=== PATIENT | female | born 1995 | race Two or more races ===

== ENCOUNTER 2020-08-05 11:16 | Emergency (ER) | payer OTHER ==
[2020-08-05 11:23] VITALS: BP 121/79; PULSE 100; TEMP 97.5; BMI 45.1
--- NOTE | 2020-08-05 13:16 | PDOC ---
History of Present Illness - General Chief Complaint: Injury Stated Complaint: LT. LEG LAC. Time Seen by Provider: 08/05/20 11:30 History Source: Patient Exam Limitations: No Limitations - History of Present Illness Initial Comments: 08/05/20 13:07 Patient is a 24-year-old female with no past medical history here with complaints of laceration to the left leg. States she was passing a glass minutes caused this laceration. Tetanus is up-to-date. PMD: Dr. Ashvin Hamilton PMHX: as above PSOCHX: occ etoh ALL: NKDA Review of Systems: GENERAL/CONSTITUTIONAL: No fever or chills. No weakness. No weight change. HEAD, EYES, EARS, NOSE AND THROAT: No change in vision. No ear pain or discharge. No sore throat. MUSCULOSKELETAL: No joint or muscle swelling or pain. No neck or back pain. SKIN AND BREASTS: No rash or easy bruising. NEUROLOGIC: No headache, vertigo, loss of consciousness, or loss of sensation. PSYCHIATRIC: No depression (+) anxiety. ENDOCRINE: No increased thirst. No abnormal weight change. HEMATOLOGIC/LYMPHATIC: No anemia, easy bleeding, or history of blood clots. ALLERGIC/IMMUNOLOGIC: No hives or skin allergy. No latex allergy. GENERAL: [The patient is awake, alert, and fully oriented, in no acute distress.] HEAD: [Normal with no signs of trauma.] LUNGS: [Breath sounds equal, clear to auscultation bilaterally. No wheezes, and no crackles.] HEART: [Regular rate and rhythm, normal S1 and S2 without murmur, rub.] ABDOMEN: [Soft, nontender, normoactive bowel sounds. No guarding, no rebound. No masses.] EXTREMITIES: [Normal range of motion, no edema. No clubbing or cyanosis. No cords, erythema, or tenderness.] NEUROLOGICAL: [Cranial nerves II through XII grossly intact. Normal speech, normal gait.] PSYCH: [Normal mood, normal affect, (+) anxiety.] SKIN: 3 cm laceration to the lateral lower extremity, warm, Dry, normal turgor, no rashes or lesions noted.] Past History - Medical History Allergies/Adverse Reactions: Allergies Allergy/AdvReac Type Severity Reaction Status Date / Time kiwi Allergy Verified 08/05/20 11:23 COPD: No - Reproductive History Is Patient Now?: No - Psycho-Social/Smoking History Smoking History: Never smoked - Substance Abuse Hx (Audit-C & DAST Scrn) How often the patient has a drink containing alcohol: 2-4 times / month Score: In Men: 4 or > Positive; In Women: 3 or > Positive: 2 Screen Result (Pos requires Nsg. Audit-10AR): Negative *Physical Exam - Vital Signs Last Vital Signs Temp Pulse Resp BP Pulse Ox 97.5 F L 100 H 18 121/79 98 08/05/20 11:20 08/05/20 11:20 08/05/20 11:20 08/05/20 11:20 08/05/20 11:20 Medical Decision Making - Medical Decision Making 08/05/20 13:07 Patient is a 24-year-old female with no past medical history here with complaints of laceration to the left leg. States she was passing a glass minutes caused this laceration. Tetanus is up-to-date. Laceration for suturing I discussed the physical exam findings, ancillary test results and final d iagnoses with the patient. I answered all of the patient's questions. The patient was satisfied with the care received and felt comfortable with the discharge plan and treatment plan. The Patient agrees to follow up with the primary care physician within 24-72 hours. Discharge - Discharge Information Problems reviewed: Yes Clinical Impression/Diagnosis: Laceration of leg Condition: Stable Disposition: HOME - Follow up/Referral Referrals: Ramses Hamilton MD [Primary Care Provider] - - Patient Discharge Instructions Patient Printed Discharge Instructions: DI for Laceration Repair Additional Instructions: Your Discharge Instructions: You must call primary care physician within 24 hours to arrange follow-up. Return to the Emergency Department with any new, persistent or worsening symptoms, for fever, chills, SOB, dizziness or any other concerning changes that may occur. Keep your wound clean and dry. If there are any concerns for infection with pain, redness, discharge from the wound, you must return to the emergency room immediately. - Post Discharge Activity
== END 2020-08-05 13:22 | disposition home or self-care (01) ==
LOC: JERFT 11:16
DX: S81.812A Laceration without foreign body, left lower leg, initial encounter (principal)
CPT/HCPCS: 99282-25

== ENCOUNTER 2022-12-15 17:12 | Emergency (ER) | payer OTHER ==
[2022-12-15 17:26] VITALS: BP 145/99; PULSE 83; RESP 20; TEMP 97.9; BMI 40.3
[2022-12-15] MEDS ORDERED: FAMOTIDINE 20 MG/50 ML IVPB 20 MG/50 ML MG IVPB ONE ×2 (18:17→18:50)
[2022-12-15] MEDS ORDERED: SUCRALFATE 1 GM TABLET (FP) PO ONE (18:30)
[2022-12-15] MEDS ORDERED: SUCRALFATE 1 GM TABLET (FP) ONE (18:56)
[2022-12-15] MEDS ORDERED: DICYCLOMINE HCL 10 MG CAPSULE PO ONE (19:48)
[2022-12-15] MEDS ORDERED: LIDOCAINE VISCOUS 2% ORAL/TOP 15 ML UNIT-DOSE CUP MM ONE (19:48)
[2022-12-15] MEDS ORDERED: MAG HYDROX/AL HYDROX/SIMETH 30 ML UNIT-DOSE CUP PO ONE (19:49)
[2022-12-15 19:57] LABS: BASO % 0.7 % (0-2.0); EOS % 0.7 % (0-4.5); HEMATOCRIT 37.8 % (32.4-45.2); HEMOGLOBIN 11.9 GM/dL (10.7-15.3); LYMPH % 32.5 % (8-40); MCH 25.7 pg (25.7-33.7); MCHC 31.6 g/dl (32.0-36.0); MEAN CELL VOLUME 81.2 fl (80-96); MEAN PLT VOLUME 8.9 fl (7.5-11.1); MONO % 9.6 % (3.8-10.2); NEUT % 56.5 % (42.8-82.8); PLATELET COUNT 260 10^3/uL (134-434); RBC 4.65 M/mm3 (3.60-5.2); RDW 15.9 % (11.6-15.6)
[2022-12-15] MEDS ORDERED: MAG HYDROX/AL HYDROX/SIMETH 30 ML UNIT-DOSE CUP ONE (19:58)
[2022-12-15] MEDS ORDERED: LIDOCAINE VISCOUS 2% ORAL/TOP 15 ML UNIT-DOSE CUP ONE (20:03)
[2022-12-15] MEDS ORDERED: DICYCLOMINE HCL 10 MG CAPSULE ONE (20:03)
[2022-12-15 20:13] LABS: CALCIUM 8.7 mg/dL (8.5-10.1)
[2022-12-15 20:14] LABS: ALBUMIN 3.6 g/dl (3.4-5.0); BLOOD UREA NITROGEN 10.1 mg/dL (7-18)
[2022-12-15 20:17] LABS: CREATININE 0.7 mg/dL (0.55-1.3)
[2022-12-15 20:18] LABS: BILIRUBIN,TOTAL 0.3 mg/dL (0.2-1)
[2022-12-15 20:19] LABS: TOT PROT 7.2 g/dl (6.4-8.2)
[2022-12-15 20:38] LABS: EPI CELLS 12 /uL (0-25.1); HYALINE CASTS 0 /uL (0-3.1); URINE APPEARANCE CLOUDY; URINE BACTERIA 57 /uL (0-1359); URINE BILIRUBIN NEGATIVE (NEGATIVE); URINE COLOR YELLOW; URINE GLUCOSE (UA) NEGATIVE (NEGATIVE); URINE KETONE NEGATIVE (NEGATIVE); URINE LEUK ESTERASE NEGATIVE (NEGATIVE); URINE NITRITE NEGATIVE (NEGATIVE); URINE PROTEIN NEGATIVE (NEGATIVE); URINE RBC 13 /uL (0-23.9); URINE UROBILINOGEN 0.2 mg/dL (0.2-1.0); URINE WBC 5 /uL (0-25.8)
[2022-12-15 21:02] LABS: WHITE BLOOD COUNT 10.6 K/mm3 (4.0-10.0)
== END 2022-12-15 23:29 | disposition home or self-care (01) ==
LOC: JER 17:12
PROC: 3E033GC Introduction of Other Therapeutic Substance into Peripheral Vein, Percutaneous Approach (ICD-10-PCS; principal; 2022-12-15)
DX: K29.60 Other gastritis without bleeding (principal)
CPT/HCPCS: 36415; 71046-TC-FY; 76705-TC; 80053; 81003; 83690; 84703; 85025; 93005; 93010; 99285-25